=== PATIENT | female | born 1945 | race Two or more races ===

== ENCOUNTER 2023-09-24 14:50 | Emergency (ER) | payer OTHER ==
[~2023-09-24] VITALS: Ht 152.4 cm; Wt 58.5 kg
[2023-09-24] MEDS ORDERED: COZAAR50 MG PO (15:10)
[2023-09-24] MEDS ORDERED: CLARITIN10 MG PO (15:10)
[2023-09-24] MEDS ORDERED: FLONASE16 GM NS (15:10)
[2023-09-24 15:58] LABS: HEMATOCRIT 38.5 % (36.0-45.00); HEMOGLOBIN 12.7 g/dL (12.0-15.00); MEAN CELL VOLUME 93.5 fL (80.00-100.00); MEAN CORPUSCULAR HEMOGLOBIN 30.9 pg (27.00-32.0); PLATELET COUNT 312 K/uL (150-450); RED BLOOD COUNT 4.12 M/uL (4.00-6.00); RED CELL DISTRIBUTION WIDTH 13.9 % (11.5-14.5)
[2023-09-24 16:20] LABS: INR 0.99; PARTIAL THROMBOPLASTIN TIME 32.3 SECONDS (22.0-34.0); PROTHROMBIN TIME 10.4 SECONDS (9.0-11.5)
[2023-09-24 16:23] LABS: CALCIUM 9.8 mg/dL (8.5-10.1); CREATININE SERUM 0.97 mg/dL (0.55-1.02); GFR 55.83; POTASSIUM 3.09 mEq/L (3.5-5.1)
== END 2023-09-24 16:04 | disposition home or self-care (01) ==
LOC: ER 14:51
PROVIDERS: Emergency Medicine
DX: S62.109A Fracture of unspecified carpal bone, unspecified wrist, initial encounter for closed fracture (principal); X58.XXXA Exposure to other specified factors, initial encounter; Y93.89 Activity, other specified; Y92.89 Other specified places as the place of occurrence of the external cause; Z88.6 Allergy status to analgesic agent; I10 Essential (primary) hypertension; Z20.822 Contact with and (suspected) exposure to COVID-19

== ENCOUNTER 2023-09-29 06:49 | Day surgery (SDC) | payer OTHER ==
[~2023-09-29] VITALS: Ht 154.9 cm; Wt 58.5 kg
[~2023-09-29 06:49] MED LIST: CLARITIN10 MG PO; COZAAR50 MG PO; FLONASE16 GM NS; PEPCID AC10 MG PO; PROAIR RESPICL90 MCG IH
== END 2023-09-29 16:25 | disposition home or self-care (01) ==
LOC: CIR.AMB 06:49
PROVIDERS: ATTEND Orthopaedic Surgery Hand Surgery
DX: S52.531A Colles' fracture of right radius, initial encounter for closed fracture (principal); Z88.0 Allergy status to penicillin; Z91.041 Radiographic dye allergy status; Z88.6 Allergy status to analgesic agent
CPT/HCPCS: 25609; 25280; L8699